=== PATIENT | male | born 1975 | race Caucasian/White ===

== ENCOUNTER 2018-10-14 11:11 | Emergency (ER) | payer OTHER ==
[2018-10-14] MEDS ORDERED: Morphine Sulfate 2 mg/mL 1mL Syr IM ONE (11:34)
--- NOTE | 2018-10-14 11:36 | ED Physician Chart ---
ED Chief Complaint/HPI - Patient Information Date Seen:: 10/14/18 Time Seen:: 11:33 Chief Complaint:: rt leg pain History of Present Illness:: rt leg pain Allergies:: Allergies Allergy/AdvReac Type Severity Reaction Status Date / Time No Known Allergies Allergy Verified 10/14/18 11:23 Vitals:: Vital Signs - 8 hr 10/14/18 11:25 Temp 98.2 F HR 103 RR 20 BP 139/100 O2 Sat % 98 ED Review of Systems - Review of Systems General/Constitutional: No fever Skin: No skin lesions Head: No headache Eyes: No loss of vision ENT: No earache Cardio Vascular: No chest pain Pulmonary: No SOB GI: No nausea, No vomiting G/U: No dysuria Musculoskeletal: Bone or joint pain Endocrine: No polyuria Hematopoietic: No bruising Allergic/Immuno: No urticaria Neurological: No syncope ED Past Medical History - Past Medical History Past Medical History: No significant medical hx Family Medical History - Family Member Mother History Unknown: Yes ED Physical Exam - Physical Examination Other Extremities comments:: rt ankle tenderness to palpation no swelling or reddness Neuro/Psych: Alert/oriented ED Assessment - Assessment General Assessment: rt leg sprain and hx sciatica ED Septic Shock - . Is Septic Shock (SBP<90, OR Lactate>4 mmol\L) present?: No - <6hrs of presentation: Vital Signs: Vital Signs - 8 hr 10/14/18 11:25 Temp 98.2 F HR 103 RR 20 BP 139/100 O2 Sat % 98 ED Reassessment (Disposition) - Reassessment Reassessment:: lumbar sprain rt leg sprain - Diagnosis Diagnosis:: as above - Aftercare/Follow up Instructions Aftercare/Follow-Up Instructions:: Counseled pt regarding lab results/diagnosis & need follow up - Patient Disposition Discharge/Transfer:: Home Condition at Disposition:: Stable
[2018-10-14] MEDS ORDERED: Morphine Sulfate 2 mg/mL 1mL Syr ONE (11:37)
[2018-10-14 11:57] VITALS: BP 139/100
== END 2018-10-14 12:02 | disposition home or self-care (01) ==
LOC: ER 11:11
DX: S93.401A Sprain of unspecified ligament of right ankle, initial encounter (principal); S33.5XXA Sprain of ligaments of lumbar spine, initial encounter; X58.XXXA Exposure to other specified factors, initial encounter; Y93.89 Activity, other specified; Y92.89 Other specified places as the place of occurrence of the external cause; Y99.8 Other external cause status
CPT/HCPCS: 99283; 96372 ×2; J2270; J2405; Z7502

== ENCOUNTER 2018-10-15 02:52 | Emergency (ER) | payer OTHER ==
--- NOTE | 2018-10-15 04:02 | ED Physician Chart ---
ED Chief Complaint/HPI - Patient Information Date Seen:: 10/15/18 Time Seen:: 03:55 Chief Complaint:: rt leg pain History of Present Illness:: 42 yr old male with hx of sciatica with c/o s of rt ankle and was wondering about gout no reddness no deformity no swelling Allergies:: Allergies Allergy/AdvReac Type Severity Reaction Status Date / Time No Known Allergies Allergy Verified 10/14/18 11:23 Vitals:: Vital Signs - 8 hr 10/15/18 03:00 Temp 97.6 F HR 98 RR 20 BP 148/100 O2 Sat % 97 ED Review of Systems - Review of Systems General/Constitutional: No fever, No chills, No weight loss, No weakness, No diaphoresis, No edema, No loss of appetite Skin: No skin lesions, No rash, No bruising Head: No headache, No light-headedness Eyes: No loss of vision, No pain, No diplopia ENT: No earache, No nasal drainage, No sore throat, No tinnitus Neck: No neck pain, No swelling, No thyromegaly, No stiffness, No mass noted Cardio Vascular: No chest pain, No palpitations, No PND, No orthopnea, No edema Pulmonary: No SOB, No cough, No sputum, No wheezing GI: No nausea, No vomiting, No diarrhea, No pain, No melena, No hematochezia, No constipation, No hematemesis G/U: No dysuria, No frequency, No hematuria Musculoskeletal: No bone or joint pain, No back pain, No muscle pain Endocrine: No polyuria, No polydipsia Psychiatric: No prior psych history, No depression, No anxiety, No suicidal ideation Hematopoietic: No bruising, No lymphadenopathy Allergic/Immuno: No urticaria, No angioedema Neurological: No syncope, No focal symptoms, No weakness, No paresthesia, No headache, No seizure, No dizziness, No confusion, No vertigo ED Past Medical History - Past Medical History Past Medical History: No significant medical hx Family Medical History - Family Member Mother History Unknown: Yes ED Physical Exam - Physical Examination General/Constitutional: Awake, Well-developed, well-nourished, Alert, No distress, GCS 15, Non-toxic appearing, Ambulatory Head: Atraumatic Eyes: Lids, conjuctiva normal, PERRL, EOMI Skin: Nl inspection, No rash, No skin lesions, No ecchymosis, Well hydrated, No lymphadenopathy ENMT: External ears, nose nl, Nasal exam nl, Lips, teeth, gums nl Neck: Nontender, Full ROM w/o pain, No JVD, No nuchal rigidity, No bruit, No mass, No stridor Respiratory: Nl effort/Exclusion, Clear to Auscultation, No Wheeze/Rhonchi/Rales Cardio Vascular: RRR, No murmur, gallop, rubs, NL S1 S2 GI: No tenderness/rebounding/guarding, No organomegaly, No hernia, Normal BS's, Nondistended, No mass/bruits, No McBurney tenderness : No CVA tenderness Extremities: No tenderness or effusion, Full ROM, normal strength in all extremities, No edema, Normal digits & nails Neuro/Psych: Alert/oriented, DTR's symmetric, Normal sensory exam, Normal motor strength, Judgement/insight normal, Mood normal, Normal gait, No focal deficits Misc: Normal back, No paraspinal tenderness ED Assessment - Assessment General Assessment: leg pains ED Septic Shock - . Is Septic Shock (SBP<90, OR Lactate>4 mmol\L) present?: No - <6hrs of presentation: Vital Signs: Vital Signs - 8 hr 10/15/18 03:00 Temp 97.6 F HR 98 RR 20 BP 148/100 O2 Sat % 97 ED Reassessment (Disposition) - Reassessment Reassessment:: leg pains - Diagnosis Diagnosis:: leg pains - Aftercare/Follow up Instructions Aftercare/Follow-Up Instructions:: Counseled pt regarding lab results/diagnosis & need follow up - Patient Disposition Discharge/Transfer:: Home Condition at Disposition:: Stable
[2018-10-15 04:09] LABS: % BASOPHILS 1.1 % (0.0-2.0); % EOSINOPHILS 1.8 % (0.0-5.0); % LYMPHOCYTES 40.7 % (20.0-50.0); % MONOCYTES 8.8 % (2.0-10.0); % NEUTROPHILS 47.6 % (40.0-80.0); BASOPHILE ABSOLUTE 0.1 Th/cumm (0-0.2); EOSINOPHILE ABSOLUTE 0.2 Th/cmm (0.1-0.4); HEMATOCRIT 50.2 % (41.0-60); HEMOGLOBIN 16.6 gm/dL (12-16); LYMPHOCYTE ABSOLUTE 3.5 Th/cmm (1.5-3.0); MEAN CELL VOLUME 88.2 fl (80-99); MEAN CORPUSCULAR HEMOGLOBIN 29.2 pg (26.0-30.0); MEAN CORPUSCULAR HGB CONC 33.2 pg (28.0-36.0); MEAN PLATELET VOLUME 6.6 fl; MONOCYTE ABSOLUTE 0.8 Th/cmm (0.3-1.0); PLATELET COUNT 221 Th/cmm (150-400); RED BLOOD COUNT 5.69 Mil/cmm (4.30-5.70); WHITE BLOOD COUNT 8.6 Th/cmm (4.8-10.8)
[2018-10-15 05:04] LABS: ALB/GLOB RATIO 1.9 (1.0-1.8); ALBUMIN 4.2 gm/dL (4.2-5.5); ALKALINE PHOSPHATASE 52 U/L (34-104); ANION GAP 13.5 (7.0-16.0); BILIRUBIN,TOTAL 0.7 mg/dL (0.3-1.0); BUN - UREA NITROGEN 22 mg/dL (7-25); CHLORIDE 104 mEq/L (98-107); CREATININE - SERUM 1.5 mg/dL (0.7-1.3); GFR AFRICAN-AMERICAN > 60.0 ml/min (>90); GFR NON AFRICAN-AMERICAN 54.8 ml/min; GLUCOSE 89 mg/dL (70-105); POTASSIUM SERUM 3.5 mEq/L (3.5-5.1); SGOT 17 U/L (13-39); SGPT/ALT 15 U/L (7-52); SODIUM SERUM 142 mEq/L (136-145); TOTAL PROTEIN,SERUM 6.4 gm/dL (6.0-8.3); URIC ACID 7.7 mg/dL (4.4-7.6)
== END 2018-10-15 06:00 | disposition home or self-care (01) ==
LOC: ER 02:52
DX: M79.661 Pain in right lower leg (principal)
CPT/HCPCS: 36415-UA; 80053-TC; 84550-TC; 85025-TC; Z7502